=== PATIENT | female | born 1975 | race Caucasian/White ===

== ENCOUNTER → 2016-11-23 | Outpatient (CLI) | payer BC ==
[~2016-11-23] MED LIST: ANTIDEPRESSANT; PERCOCET 325 MG1 TA2 PO; VALIUM5 MG PO
== END ==
LOC: MC.RAD 13:58
DX: N63 Unspecified lump in breast (principal)

== ENCOUNTER → 2016-11-30 | Outpatient (CLI) | payer BC | LOC: MC.RAD 09:51 | DX: C50.112 Malignant neoplasm of central portion of left female breast (principal) ==

== ENCOUNTER 2016-12-14 06:55 | Day surgery (SDC) | payer BC ==
[2016-12-14] VITALS (9 sets, daily range): BP systolic 107–149; BP diastolic 53–87; PULSE 58–102; TEMP 98–98.1
[~2016-12-14] VITALS: Ht 165.1 cm; Wt 52.6 kg
[2016-12-15 01:45] VITALS: BP 110/57; PULSE 93; TEMP 97.7
[2016-12-15 05:48] VITALS: BP 115/66; PULSE 85; TEMP 97.9
[2016-12-15 10:00] VITALS: BP 119/70; PULSE 89; TEMP 97.8
[2016-12-15 13:27] VITALS: BP 99/53; PULSE 91; TEMP 97.7
== END 2016-12-15 16:05 | disposition home health service (06) ==
LOC: SDCO 06:55 → SURG 16:20 → SDCO 12-15 16:05
DX: C50.012 Malignant neoplasm of nipple and areola, left female breast (principal); Z17.0 Estrogen receptor positive status [ER+]; F17.210 Nicotine dependence, cigarettes, uncomplicated
CPT/HCPCS: OP; A9284; A9541; J0690; J1100; J1170; J2250; J2405; J2704; J3010; J7120; Q9968

== ENCOUNTER 2017-01-04 10:03 | Day surgery (SDC) | payer BC ==
[~2017-01-04] VITALS: Ht 162.6 cm; Wt 52.3 kg
[2017-01-04 10:50] VITALS: BP 129/68; PULSE 97; TEMP 98.3
[2017-01-04 13:53] VITALS: BP 120/66; PULSE 92; TEMP 98.2
[2017-01-04 14:08] VITALS: BP 117/72; PULSE 89
[2017-01-04 14:23] VITALS: BP 115/69; PULSE 86
[2017-01-04 14:38] VITALS: BP 96/50; PULSE 95
== END 2017-01-04 15:10 | disposition home or self-care (01) ==
LOC: SDCO 10:03
DX: C50.912 Malignant neoplasm of unspecified site of left female breast (principal)
CPT/HCPCS: C1788; J0690; J1100; J1644; J1885; J2250; J2405; J2704; J3010; J7120

== ENCOUNTER → 2017-12-20 | Outpatient (CLI) | payer BC | LOC: MC.RAD 10:47 | DX: Z12.31 Encounter for screening mammogram for malignant neoplasm of breast (principal); Z90.12 Acquired absence of left breast and nipple; Z97.8 Presence of other specified devices ==